=== PATIENT | female | born 1985 | race African-American/Black ===

== ENCOUNTER 2020-09-26 15:18 | Inpatient (IN) | payer BC ==
[~2020-09-26] VITALS: Ht 172.7 cm; Wt 63.5 kg
[2020-09-26] MEDS ORDERED: Omnipaque-300 100ml vial INJ PRN (15:30)
[2020-09-26] MEDS ORDERED: Morphine Sulfate 4mg/ml Inj (IV USE ONLY) IVP ONE ×2 (15:45→17:15)
--- NOTE | 2020-09-26 15:45 | NUR ---
ED Nurse Note:pt. came from home with lower abdominal pain, she had surgical presidure done yesterday, no fever, blood and urine sent to labs, given iv fluids and meds
[2020-09-26 15:53] VITALS: BP 106/67
[2020-09-26 15:54] LABS: APPEARANCE,URINE CLEAR; BILIRUBIN, URINE NEGATIVE (NEGATIVE); COLOR,URINE PALE YELLOW; GLUCOSE, URINE (UA) NEGATIVE (NEGATIVE); KETONES,URINE 4+ (NEGATIVE); LEUKOCYTE ESTERASE ,URINE 1+ (NEGATIVE); NITRITE,URINE NEGATIVE (NEGATIVE); PH,URINE 7 (4.5-8.0); PROTEIN,URINE NEGATIVE (NEGATIVE); UROBILINOGEN,URINE NORMAL MG/DL (0.0-1.0)
[2020-09-26 16:11] LABS: ANION GAP 8 mmol/L (5-15); BLOOD UREA NITROGEN 3 mg/dL (7-18); CALCIUM 8.7 MG/DL (8.5-10.1); CARBON DIOXIDE 26 MMOL/L (21-32); CHLORIDE 104 MMOL/L (98-107); CREATININE 0.5 MG/DL (0.55-1.30); MEAN CORPUSCULAR VOLUME 57 FL (80-99); PLATELET COUNT 370 K/UL (150-450); POTASSIUM 3.8 MMOL/L (3.5-5.1); RED BLOOD COUNT 4.41 M/UL (4.20-5.40); RED CELL DISTRIBUTION WIDTH 15.5 % (11.6-14.8); SODIUM 138 MMOL/L (136-145); WHITE BLOOD COUNT 13.5 K/UL (4.8-10.8)
--- NOTE | 2020-09-26 16:11 | Emergency Room Report ---
History of Present Illness General Chief Complaint: Abdominal Pain Source: Patient, Family Member Present Illness HPI This patient is status post uterine embolization for treatment of uterine fibroids. The patient underwent embolization yesterday around [address] Pizano. The patient states that she has been using Percocet for pain without any relief. The patient states that her pain in her lower pelvis is unbearable. She also feels fatigued. Her mother states she thought she had a fever earlier today. She has very localized pain in the pelvis. She is also had vomiting. She has no other complaints. 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 COVID-19 Screening: Negative COVID-19 COVID-19 Testing Source: 09/24/20 Patient History Past Medical History: see triage record Social History: Denies: smoking, alcohol use, drug use Last Menstrual Period: 1 week ago Now: No Reviewed Nursing Documentation: PMH: Agreed; PSxH: Agreed Nursing Documentation-PMH Past Medical History: No Stated History Review of Systems All Other Systems: negative except mentioned in HPI Physical Exam Vital Signs Date Time Temp Pulse Resp B/P (MAP) Pulse Ox O2 Delivery O2 Flow Rate FiO2 09/26/20 15:23 98.8 93 18 106/67 (80) 98 Room Air Sp02 EP Interpretation: reviewed, normal General Appearance: no apparent distress, alert, GCS 15, non-toxic Head: normocephalic, atraumatic Eyes: bilateral eye normal inspection, bilateral eye PERRL ENT: hearing grossly normal, normal pharynx, no angioedema, normal voice Neck: full range of motion, supple/symm/no masses Respiratory: lungs clear, normal breath sounds, no respiratory distress, no retraction, no accessory muscle use, speaking full sentences Cardiovascular #1: regular rate, rhythm, no edema Gastrointestinal: soft, tenderness - exquistely ttp in pelvis Rectal: deferred Musculoskeletal: back normal, normal range of motion, gait/station normal, non- tender Neurologic: alert, motor strength/tone normal, oriented x3, sensory intact, responsive, speech normal Psychiatric: judgement/insight normal, memory normal, mood/affect normal, no suicidal/homicidal ideation Medical Decision Making Diagnostic Impression: Primary Impression: Status post embolization of uterine artery Additional Impressions: Other acute postprocedural pain Post procedure pain Uncontrolled pain Anemia ER Course This patient is status post embolization of uterine artery for uterine fibroids. The patient presents with severe post procedure pain that is nonresponsive to oral pain medications at home. The patient is also found to have significant anemia. I had planned on doing a type and cross and a transfusion, however, the patient declined stating bahai reasons. I did notify Dr. Pizano. Dr. Pizano stated that she has known iron deficiency anemia and this is her baseline. The patient is admitted for further pain control and further evaluation and treatment by Dr. Pizano. This patient was evaluated in the context of the global COVID-19 pandemic, which necessitated consideration that the patient might be at risk for infection with the [id number] virus that causes COVID-19. Institutional protocols and algorithms that pertain to the evaluation of patients at risk for COVID-19 and the state of rapid change based on information released by multiple regulatory bodies including the CDC and federal and state organizations. These policies and algorithms were followed during the patient's care in the ED. Laboratory Tests Test 09/26/20 15:45 09/26/20 15:48 09/26/20 16:50 White Blood Count 13.5 K/UL (4.8-10.8) H Red Blood Count 4.41 M/UL (4.20-5.40) Hemoglobin 6.4 G/DL (12.0-16.0) *L Hematocrit 25.0 % (37.0-47.0) L Mean Corpuscular Volume 57 FL (80-99) L Mean Corpuscular Hemoglobin 14.6 PG (27.0-31.0) L Mean Corpuscular Hemoglobin Concent 25.9 G/DL (32.0-36.0) L Red Cell Distribution Width 15.5 % (11.6-14.8) H Platelet Count 370 K/UL (150-450) Mean Platelet Volume 7.2 FL (6.5-10.1) Neutrophils (%) (Auto) % (45.0-75.0) Lymphocytes (%) (Auto) % (20.0-45.0) Monocytes (%) (Auto) % (1.0-10.0) Eosinophils (%) (Auto) % (0.0-3.0) Basophils (%) (Auto) % (0.0-2.0) Differential Total Cells Counted 100 Neutrophils % (Manual) 84 % (45-75) H Lymphocytes % (Manual) 7 % (20-45) L Monocytes % (Manual) 7 % (1-10) Eosinophils % (Manual) 0 % (0-3) Basophils % (Manual) 0 % (0-2) Band Neutrophils 2 % (0-8) Platelet Estimate Adequate Platelet Morphology Normal Hypochromasia 3+ Anisocytosis 3+ Microcytosis 3+ Macrocytosis Occasional Urine Color Pale yellow Urine Appearance Clear Urine pH 7 (4.5-8.0) Urine Specific [place] 1.010 (1.005-1.035) Urine Protein Negative (NEGATIVE) Urine Glucose (UA) Negative (NEGATIVE) Urine Ketones 4+ (NEGATIVE) H Urine Blood Negative (NEGATIVE) Urine Nitrite Negative (NEGATIVE) Urine Bilirubin Negative (NEGATIVE) Urine Urobilinogen Normal MG/DL (0.0-1.0) Urine Leukocyte Esterase 1+ (NEGATIVE) H Urine RBC 0-2 /HPF (0 - 2) Urine WBC 5-10 /HPF (0 - 2) H Urine Squamous Epithelial Cells Moderate /LPF (NONE/OCC) H Urine Bacteria Moderate /HPF (NONE) H Urine HCG, Qualitative Negative (NEGATIVE) Sodium Level 138 MMOL/L (136-145) Potassium Level 3.8 MMOL/L (3.5-5.1) Chloride Level 104 MMOL/L (98-107) Carbon Dioxide Level 26 MMOL/L (21-32) Anion Gap 8 mmol/L (5-15) Blood Urea Nitrogen 3 mg/dL (7-18) L Creatinine 0.5 MG/DL (0.55-1.30) L Estimated Glomerular Filtration Rate > 60 mL/min (>60) Glucose Level 92 MG/DL (74-106) Calcium Level 8.7 MG/DL (8.5-10.1) Total Bilirubin 0.6 MG/DL (0.2-1.0) Aspartate Amino Transferase (AST) 36 U/L (15-37) Alanine Aminotransferase (ALT) 10 U/L (12-78) L Alkaline Phosphatase 55 U/L (46-116) Total Protein 7.0 G/DL (6.4-8.2) Albumin 3.6 G/DL (3.4-5.0) Globulin 3.4 g/dL Albumin/Globulin Ratio 1.1 (1.0-2.7) Lipase 77 U/L (73-393) Prothrombin Time 11.5 SEC (9.30-11.50) Prothrombin Time INR 1.0 (0.9-1.1) Activated Partial Thromboplast Time 29 SEC (23-33) Lactic Acid Level Pending Microbiology Date/Time Source Procedure Growth Status 09/26/20 15:45 Nasopharynx SARS-CoV-2 RdRp Gene Assay - Final Complete CT/MRI/US Diagnostic Results CT/MRI/US Diagnostic Results : Imaging Test Ordered: CT abd/pelvis Impression IMPRESSION: 1. Very large uterine fibroids, some containing calcifications, hyperdense material, and gas. 2. Small amount of gas in the anterior bladder may represent recent catheterization or cystitis. Please correlate with urinalysis. 3. Small amount of ascites. Last Vital Signs Date Time Temp Pulse Resp B/P (MAP) Pulse Ox O2 Delivery O2 Flow Rate FiO2 09/26/20 15:23 98.8 93 18 106/67 (80) 98 Room Air Status: improved Disposition: ADMITTED INPATIENT Condition: Stable Scripts No Active Prescriptions or Reported Meds Referrals: NON PHYSICIAN (PCP) Amina Garcia DO Sep 26, 2020 16:10
[2020-09-26 16:15] LABS: ALANINE AMINOTRANSFERASE 10 U/L (12-78); ALBUMIN 3.6 G/DL (3.4-5.0); ALBUMIN/GLOBULIN RATIO 1.1 (1.0-2.7); ALKALINE PHOSPHATASE 55 U/L (46-116); ASPARTATE AMINO TRANSFERASE 36 U/L (15-37); BILIRUBIN,TOTAL 0.6 MG/DL (0.2-1.0)
[2020-09-26 16:19] LABS: HEMOGLOBIN 6.4 G/DL (12.0-16.0)
--- NOTE | 2020-09-26 16:30 | NUR ---
ED Nurse Note:pt. refusing blood transfusion, ER MD is notified and blood bank also
[2020-09-26 17:37] VITALS: BP 110/68
--- NOTE | 2020-09-26 17:47 | Diagnostic Imaging Report ---
EXAM: CT Abdomen and Pelvis Without Intravenous Contrast CLINICAL HISTORY: PAIN TECHNIQUE: Axial computed tomography images of the abdomen and pelvis without intravenous contrast. CTDI is 3.90 mGy and DLP is 217.20 mGy-cm. One or more of the following dose reduction techniques were used: automated exposure control, adjustment of the mA and/or kV according to patient size, use of iterative reconstruction technique. COMPARISON: None FINDINGS: Lung bases: Unremarkable. No mass. No consolidation. ABDOMEN: Liver: Unremarkable. Gallbladder and bile ducts: Hyperdense material within the gallbladder may represent vicarious excretion of contrast versus stones/sludge. No ductal dilation. Pancreas: Unremarkable. No ductal dilation. Spleen: Unremarkable. No splenomegaly. Adrenals: Unremarkable. No mass. Kidneys and ureters: Unremarkable. No obstructing stones. No hydronephrosis. Stomach and bowel: Evaluation of the stomach is limited bladder distention. No mucosal thickening. PELVIS: Appendix: Normal appendix. Bladder: Small amount of gas in the anterior bladder may represent recent catheterization or cystitis. Please correlate with urinalysis. Reproductive: Very large uterine fibroids, some containing calcifications, hyperdense material, and gas. ABDOMEN and PELVIS: Intraperitoneal space: Small amount of ascites. No free air. Bones/joints: No acute fracture. No dislocation. Soft tissues: Bilateral breast implants partially visualized. Probable injection changes in the gluteal soft tissues. Vasculature: Unremarkable. No abdominal aortic aneurysm. Lymph nodes: Unremarkable. No enlarged lymph nodes. IMPRESSION: 1. Very large uterine fibroids, some containing calcifications, hyperdense material, and gas. 2. Small amount of gas in the anterior bladder may represent recent catheterization or cystitis. Please correlate with urinalysis. 3. Small amount of ascites.
--- NOTE | 2020-09-26 18:00 | NUR ---
ED Nurse Note:called report to [address] ,given to Eduardo FREEMAN
--- NOTE | 2020-09-26 18:05 | NUR ---
NURSE NOTES: Received patient by gayla in stable condition. Alert and oriented x4. Complain of pain 7/10 on abdominal area. IV dressing intact and dry. Belonging checked. Bed lowest position and side rails up. Call light within reach. Will continue to monitor.
[2020-09-26 18:15] VITALS: BP 115/70
[2020-09-26] MEDS ORDERED: Milk of Magnesia 30ml Ud ORAL PRN (18:30)
[2020-09-26] MEDS ORDERED: HYDROmorphone 1mg/ml Carpuject IVP PRN (18:45)
--- NOTE | 2020-09-26 19:20 | NUR ---
NURSE HAND-OFF: Important Events on Shift:New admission Patient Status: Stable Diet: Full liquid Pending Orders: N/A Pending Results/Labs:CBC and CMP on 09/27 Pending MD notification:N/A Latest Vital Signs: Temperature 97.6 , Pulse 98 , B/P 115 /70 , Respiratory Rate 16 , O2 SAT 98 , Room Air, O2 Flow Rate . Vital Sign Comment: Stable Latest Pacheco Fall Score: 35 Fall Risk: Medium Risk Safety Measures: Call light Within Reach, Bed Alarm Zone 1, Side Rails Side Rails x2, Bed position Low and Locked. Fall Precautions: Yellow Socks Door Sign Patient Fall Education Report given to Jorge FREEMAN. Patient in stable condition.
--- NOTE | 2020-09-26 19:45 | NUR ---
NURSE NOTES: Received report from Joe FREEMAN. Patient is awake, alert, and oriented x4. On room air, breathing is even and unlabored. Complains of abdominal pain 9/10. Will administer pain med. Heating pad in the room. IV right AC intact and patent with no bleeding noted. IVF running as ordered. Bed low and locked. Call light within reach.
[2020-09-26 20:00] VITALS: BP 110/68
[2020-09-26] MEDS: Potassium Chloride 30 MEQ in Dextrose 5%/Lactated Ringer's 1,000 ML IV SCH (21:04)
[2020-09-26] MEDS: Iron Sucrose 100 MG in NS 55 ML IVPB SCH (21:04)
[2020-09-26] MEDS: ceFAZolin sod 1 GM in D5W 55 ML IVPB SCH (21:25)
[2020-09-26] MEDS: Relistor 12mg/0.6ml Vial SUBQ SCH (21:25)
[2020-09-27] VITALS: BP 112/69
[2020-09-27] MEDS: Potassium Chloride 30 MEQ in Dextrose 5%/Lactated Ringer's 1,000 ML IV SCH ×4 (03:18→22:39)
[2020-09-27 04:00] VITALS: BP 114/70
--- NOTE | 2020-09-27 04:00 | NUR ---
NURSE NOTES: Patient's O2 sat drop down to 80s. Patient is asleep, easily arousable, and asymptomatic. Put the NC 2L, and O2 sat went up to 92. Called about the situation. Order received and carried out. NC 5-6L titrate >93.
[2020-09-27] MEDS: ceFAZolin sod 1 GM in D5W 55 ML IVPB SCH ×3 (05:14→22:39)
[2020-09-27 06:20] LABS: HEMATOCRIT 21.4 % (37.0-47.0); MEAN CORPUSCULAR VOLUME 57 FL (80-99); PLATELET COUNT 333 K/UL (150-450); RED BLOOD COUNT 3.77 M/UL (4.20-5.40); RED CELL DISTRIBUTION WIDTH 15.8 % (11.6-14.8); WHITE BLOOD COUNT 15.5 K/UL (4.8-10.8)
[2020-09-27 06:33] LABS: HEMOGLOBIN 5.7 G/DL (12.0-16.0)
--- NOTE | 2020-09-27 06:52 | NUR ---
NURSE NOTES: Received phone call from Nilson from lab regarding Hgb 5.7. Called Dr.Mc Mack about the critical value. Order received and read back. Will carry out order.
[2020-09-27 07:06] LABS: ALANINE AMINOTRANSFERASE 9 U/L (12-78); ALBUMIN 2.9 G/DL (3.4-5.0); ALBUMIN/GLOBULIN RATIO 0.9 (1.0-2.7); ALKALINE PHOSPHATASE 47 U/L (46-116); ANION GAP 6 mmol/L (5-15); ASPARTATE AMINO TRANSFERASE 27 U/L (15-37); BILIRUBIN,TOTAL 0.4 MG/DL (0.2-1.0); BLOOD UREA NITROGEN 3 mg/dL (7-18); CARBON DIOXIDE 28 MMOL/L (21-32); CHLORIDE 105 MMOL/L (98-107); CREATININE 0.4 MG/DL (0.55-1.30); POTASSIUM 3.4 MMOL/L (3.5-5.1); SODIUM 139 MMOL/L (136-145)
[2020-09-27 07:29] LABS: CALCIUM 8.4 MG/DL (8.5-10.1)
--- NOTE | 2020-09-27 07:38 | NUR ---
NURSE HAND-OFF: Important Events on Shift: Pain management, NC 5-6L titrate >93 Patient Status: Stable Diet: Full liquid Pending Orders: [] Pending Results/Labs:[] Pending MD notification:[] Latest Vital Signs: Temperature 99.0 , Pulse 91 , B/P 114 /70 , Respiratory Rate 16 , O2 SAT 98 , Room Air, O2 Flow Rate . Vital Sign Comment: VS stable except O2 sat Latest Pacheco Fall Score: 35 Fall Risk: Medium Risk Safety Measures: Call light Within Reach, Bed Alarm Zone 1, Side Rails Side Rails x2, Bed position Low and Locked. Fall Precautions: Patient Fall Education Report given to Joshua FREEMAN.
--- NOTE | 2020-09-27 07:40 | NUR ---
NURSE NOTES: Received report from LYDIA Patel. Rounding done with outgoing nurse. Pt a/o x 4, in bed. No SOB noted with NC 2L/min. c/o abdominal pain as 06/16. Pain medicine will be given as MD ordered. Rt AC is in placed. D5LR + KCl 30meq is running @ 150ml/hr. Bed in lowest position, call light within reach. Will continue to monitor.
[2020-09-27 07:58] VITALS: BP 102/65
--- NOTE | 2020-09-27 08:22 | History & Physical ---
History of Present Illness General Date patient seen: Sep 27, 2020 Reason for Hospitalization: Abdominal Pain Present Illness HPI 35 F h/o UF and anemia SP UFE 09/25 p/w abd pain and anemia. No FC no CP some SOB no NV + D. She refused PRBC in the ER. She has been admitted for pain control, anemia and bowel regimen. Allergies: Coded Allergies: ACETAMINOPHEN (Verified Allergy, Unknown, 09/26/20) OXYCODONE (Verified Allergy, Unknown, 09/26/20) COVID-19 Screening Contact w/high risk pt: No Recent Travel to affected area: No Experienced COVID-19 symptoms?: No Medication History No Active Prescriptions or Reported Meds Patient History History Provided By: Patient Healthcare decision maker N Resuscitation status Advanced Directive on File Review of Systems Review of Symptoms General ROS: no weight loss or fever Psychological ROS: no depression or mood changes, no memory loss Ophthalmic ROS: no visual changes or eye irritation ENT ROS: no nasal congestion, hearing loss, dizziness Allergy and Immunology ROS: no allergic symptoms or urticaria Hematological and Lymphatic ROS: no swollen glands, unusual bleeding or bruising Endocrine ROS: no polyuria, polydipsia, weight changes, temperature intolerance Respiratory ROS: no cough, shortness of breath, or wheezing Cardiovascular ROS: no chest pain or dyspnea on exertion Gastrointestinal ROS: denies abdominal pain, bright red blood in stool. Musculoskeletal ROS: no myalgias or arthralgias Neurological ROS: no TIA or stroke symptoms Dermatological ROS: no new or changing skin lesions, rashes or pruritis Physical Exam Physical Exam General appearance: alert, cooperative, no distress, appears stated age Head: Normocephalic, without obvious abnormality, atraumatic Eyes: conjunctivae/corneas clear. PERRL, EOM's intact. Fundi benign Throat: Lips, mucosa, and tongue normal. Teeth and gums normal Neck: supple, symmetrical, trachea midline, no adenopathy, thyroid: not enlarged, symmetric, no tenderness/mass/nodules, no carotid bruit and no JVD Lungs: clear to auscultation bilaterally Heart: regular rate and rhythm, S1, S2 normal, no murmur, click, rub or gallop Abdomen: soft, non-tender. Bowel sounds normal. No masses, no organomegaly Extremities: extremities normal, atraumatic, no cyanosis or edema Pulses: 2+ and symmetric Skin: Skin color, texture, turgor normal. No rashes or lesions Neurologic: Grossly normal Last 24 Hour Vital Signs Date Time Temp Pulse Resp B/P (MAP) Pulse Ox O2 Delivery O2 Flow Rate FiO2 09/27/20 07:58 99.5 95 16 102/65 (77) 98 09/27/20 04:00 99.0 91 16 114/70 (85) 98 09/27/20 00:00 99.2 97 16 112/69 (83) 95 09/26/20 21:00 Room Air 09/26/20 20:00 98.8 104 16 110/68 (82) 98 09/26/20 18:32 Room Air 09/26/20 18:15 97.6 98 16 115/70 (85) 98 09/26/20 17:37 98.8 82 18 110/68 99 Room Air 09/26/20 17:36 98.8 09/26/20 17:35 98.8 92 18 106/67 98 Room Air 09/26/20 16:38 98.8 09/26/20 15:53 93 18 Room Air 09/26/20 15:53 98.8 92 18 106/67 98 Room Air 09/26/20 15:23 98.8 93 18 106/67 (80) 98 Room Air Intake and Output 09/26/20 09/27/20 19:00 07:00 Intake Total 1360 ml Balance 1360 ml Intake Oral 140 ml IV Total 1220 ml # Voids 1 3 Laboratory Tests Test 09/26/20 15:45 09/26/20 15:48 09/26/20 16:50 09/27/20 04:55 White Blood Count 13.5 K/UL (4.8-10.8) H 15.5 K/UL (4.8-10.8) H Red Blood Count 4.41 M/UL (4.20-5.40) 3.77 M/UL (4.20-5.40) L Hemoglobin 6.4 G/DL (12.0-16.0) *L 5.7 G/DL (12.0-16.0) *L Hematocrit 25.0 % (37.0-47.0) L 21.4 % (37.0-47.0) L Mean Corpuscular Volume 57 FL (80-99) L 57 FL (80-99) L Mean Corpuscular Hemoglobin 14.6 PG (27.0-31.0) L 15.2 PG (27.0-31.0) L Mean Corpuscular Hemoglobin Concent 25.9 G/DL (32.0-36.0) L 26.7 G/DL (32.0-36.0) L Red Cell Distribution Width 15.5 % (11.6-14.8) H 15.8 % (11.6-14.8) H Platelet Count 370 K/UL (150-450) 333 K/UL (150-450) Mean Platelet Volume 7.2 FL (6.5-10.1) 8.4 FL (6.5-10.1) Neutrophils (%) (Auto) % (45.0-75.0) % (45.0-75.0) Lymphocytes (%) (Auto) % (20.0-45.0) % (20.0-45.0) Monocytes (%) (Auto) % (1.0-10.0) % (1.0-10.0) Eosinophils (%) (Auto) % (0.0-3.0) % (0.0-3.0) Basophils (%) (Auto) % (0.0-2.0) % (0.0-2.0) Differential Total Cells Counted 100 Neutrophils % (Manual) 84 % (45-75) H Pending Lymphocytes % (Manual) 7 % (20-45) L Pending Monocytes % (Manual) 7 % (1-10) Eosinophils % (Manual) 0 % (0-3) Basophils % (Manual) 0 % (0-2) Band Neutrophils 2 % (0-8) Platelet Estimate Adequate Pending Platelet Morphology Normal Pending Hypochromasia 3+ Anisocytosis 3+ Microcytosis 3+ Macrocytosis Occasional Urine Color Pale yellow Urine Appearance Clear Urine pH 7 (4.5-8.0) Urine Specific [place] 1.010 (1.005-1.035) Urine Protein Negative (NEGATIVE) Urine Glucose (UA) Negative (NEGATIVE) Urine Ketones 4+ (NEGATIVE) H Urine Blood Negative (NEGATIVE) Urine Nitrite Negative (NEGATIVE) Urine Bilirubin Negative (NEGATIVE) Urine Urobilinogen Normal MG/DL (0.0-1.0) Urine Leukocyte Esterase 1+ (NEGATIVE) H Urine RBC 0-2 /HPF (0 - 2) Urine WBC 5-10 /HPF (0 - 2) H Urine Squamous Epithelial Cells Moderate /LPF (NONE/OCC) H Urine Bacteria Moderate /HPF (NONE) H Urine HCG, Qualitative Negative (NEGATIVE) Sodium Level 138 MMOL/L (136-145) 139 MMOL/L (136-145) Potassium Level 3.8 MMOL/L (3.5-5.1) 3.4 MMOL/L (3.5-5.1) L Chloride Level 104 MMOL/L (98-107) 105 MMOL/L (98-107) Carbon Dioxide Level 26 MMOL/L (21-32) 28 MMOL/L (21-32) Anion Gap 8 mmol/L (5-15) 6 mmol/L (5-15) Blood Urea Nitrogen 3 mg/dL (7-18) L 3 mg/dL (7-18) L Creatinine 0.5 MG/DL (0.55-1.30) L 0.4 MG/DL (0.55-1.30) L Estimat Glomerular Filtration Rate > 60 mL/min (>60) > 60 mL/min (>60) Glucose Level 92 MG/DL (74-106) 140 MG/DL (74-106) H Calcium Level 8.7 MG/DL (8.5-10.1) 8.4 MG/DL (8.5-10.1) L Total Bilirubin 0.6 MG/DL (0.2-1.0) 0.4 MG/DL (0.2-1.0) Aspartate Amino Transf (AST/SGOT) 36 U/L (15-37) 27 U/L (15-37) Alanine Aminotransferase (ALT/SGPT) 10 U/L (12-78) L 9 U/L (12-78) L Alkaline Phosphatase 55 U/L (46-116) 47 U/L (46-116) Total Protein 7.0 G/DL (6.4-8.2) 6.0 G/DL (6.4-8.2) L Albumin 3.6 G/DL (3.4-5.0) 2.9 G/DL (3.4-5.0) L Globulin 3.4 g/dL 3.1 g/dL Albumin/Globulin Ratio 1.1 (1.0-2.7) 0.9 (1.0-2.7) L Lipase 77 U/L (73-393) Prothrombin Time 11.5 SEC (9.30-11.50) Prothromb Time International Ratio 1.0 (0.9-1.1) Activated Partial Thromboplast Time 29 SEC (23-33) Lactic Acid Level 1.00 mmol/L (0.4-2.0) Microbiology Date/Time Source Procedure Growth Status 09/26/20 15:45 Nasopharynx SARS-CoV-2 RdRp Gene Assay - Final Complete Height (Feet): 5 Height (Inches): 8.00 Weight (Pounds): 140 Medications Current Medications Medications (Trade) Dose Ordered Sig/Josias Route PRN Reason Start Time Stop Time Status Last Admin Dose Admin Cefazolin Sodium 1 gm/Dextrose 55 ml @ 110 mls/hr Q8HR IVPB 09/26/20 22:00 10/03/20 21:59 09/27/20 05:14 Hydromorphone HCl (Dilaudid) 1 mg Q3H PRN IVP Mild Pain (Pain Scale 1-3) 09/26/20 18:45 10/03/20 18:44 Hydromorphone HCl (Dilaudid) 2 mg Q3H PRN IVP Moderate Pain (Pain Scale 4-6) 09/26/20 18:45 10/03/20 18:44 Hydromorphone HCl (Dilaudid) 2 mg Q3H PRN IVP Severe Pain (Pain Scale 7-10) 09/27/20 07:00 10/04/20 06:59 09/27/20 08:04 Iohexol (OMNIPAQUE-300 100ml) 100 ml NOW PRN INJ Radiology Procedure 09/26/20 15:30 09/28/20 15:29 Iron Sucrose 100 mg/Sodium Chloride 60 ml @ 240 mls/hr BEDTIME IVPB 09/26/20 21:00 10/26/20 20:59 09/26/20 21:04 Magnesium Hydroxide (Mom) 30 ml TIDPRN PRN ORAL Constipation 09/26/20 18:30 10/26/20 18:29 Methylnaltrexone [place] (Relistor) 12 mg Q48H SUBQ 09/26/20 21:00 12/25/20 20:59 09/26/20 21:25 Ondansetron HCl (Zofran) 4 mg Q6H PRN IVP Nausea & Vomiting 09/26/20 18:30 10/26/20 18:29 Potassium Chloride 30 meq/ Dextrose/Lactated Ringer's 1,015 ml @ 150 mls/hr Q6H46M IV 09/26/20 20:00 10/26/20 19:59 09/27/20 03:18 Assessment/Plan Problem List: (1) Other acute postprocedural pain ICD Codes: G89.18 - Other acute postprocedural pain SNOMED: 596450487392225 (2) Anemia ICD Codes: D64.9 - Anemia, unspecified SNOMED: 069429004 (3) Status post embolization of uterine artery ICD Codes: Z98.890 - Other specified postprocedural states SNOMED: 575753979 Assessment/Plan: Admit to OBS Pain control/supportive care Bowel regimen Encourage PRBC, pt declines, will continue to discuss Theresa-operative Keflex OOB IS DIETITIAN THERAPEUTIC consult Diet as tolerated mIVF DVT Px: S[facility] Hospital declaration INPATIENT level of care is warranted for this patient because patient is a 89 year old with who presents with suspicion of . I have a high level of concern because . Patient is at high risk for . Plan of care/treatment include . Patient care is expected to be greater than 2 midnights. OBSERVATION level of care is warranted for this patient. Patient is a 89 year old with who presents with . Patient will be admitted for 1 midnight, but if additional night(s) is/are necessary, patient will be converted to inpatient status for the entire hospitalization Disposition: Once the patient is stable to leave the hospital, I anticipate the patient will likely be discharged to the following environment: Estimated discharge date: I spent 70 minutes on this patient's case, and minutes was dedicated to counseling and/or care coordination. MIPS (Merit-based Incentive Payment System) Applicable CPT: 40464, 11890 CHECK ALL THAT ARE MET: Measure #5 (CHF): All ages. Prescribe PATY/ARB upon discharge for patients with left ventricular systolic dysfunction. If not, the reason is clearly documented in the medical chart. Measure #8 (CHF): All ages. Prescribe a beta geovanni upon discharge for patients with left ventricular systolic dysfunction. If not, the reason is clearly documented in the medical chart. Measure #47 Advance care plan or surrogate decision maker documented in the medical record. Measure #130 The provider has documented, updated, or reviewed the patients current medication list and has documented it in the patients note. Measure #374 (All): Send report to referring provider. Measure #407(Sepsis due to MSSA bacteremia): Age 18+ Patient treated with a beta-lactam antibiotic (Nafcillin, Oxacillin or Cefazolin) as definitive therapy. MEDICAL COMPLEXITY High complexity medical decision making (need 2/3 categories) Problem - need 4 points Acute/new problem with new plan for workup (4 points, 1 max) Acute/new problem without additional workup (3 points, 1 max) Unstable chronic problem actively being managed (2 point each, 2 max) Stable chronic problem actively being managed (1 point each, 2 max) Self-limited/transient process (constipation, muscle ache, etc) (1 point each, 2 max) Data - need 4 points Reviewed labs/imaging studies (1 points, 2 max) Independent review of imaging (EKG, xrays, etc) (2 points, 2 max) Discussed case with consult/other MD/RN (2 points, 2 max) High Risk - qualify if have one of the following: Severe exacerbation of acute problem, acute mental status change, IV narcotics, monitoring drug levels (vancomycin, INR, tacrolimus etc) Andrew Duarte MD Sep 27, 2020 08:22
--- NOTE | 2020-09-27 10:50 | NUR ---
NURSE NOTES: Blood transfusion was started. Pt is in stable condition.
--- NOTE | 2020-09-27 11:25 | NUR ---
NURSE NOTES: Dr. Pizano called and ordered soft diet. Order read back and carried out.
--- NOTE | 2020-09-27 11:31 | General Surgery Progress Note ---
General Surgery-Progress Note Subjective Day of Surgery: september 25 Procedure Performed uterine fibroid embolization Chief Complaint: uncontrolled post procedure pain, anemia Symptoms: tolerating diet, voiding well, pain decreased Objective Last 24 Hour Vital Signs Date Time Temp Pulse Resp B/P (MAP) Pulse Ox O2 Delivery O2 Flow Rate FiO2 09/27/20 07:58 99.5 95 16 102/65 (77) 98 09/27/20 04:00 99.0 91 16 114/70 (85) 98 09/27/20 00:00 99.2 97 16 112/69 (83) 95 09/26/20 21:00 Room Air 09/26/20 20:00 98.8 104 16 110/68 (82) 98 09/26/20 18:32 Room Air 09/26/20 18:15 97.6 98 16 115/70 (85) 98 09/26/20 17:37 98.8 82 18 110/68 99 Room Air 09/26/20 17:36 98.8 09/26/20 17:35 98.8 92 18 106/67 98 Room Air 09/26/20 16:38 98.8 09/26/20 15:53 93 18 Room Air 09/26/20 15:53 98.8 92 18 106/67 98 Room Air 09/26/20 15:23 98.8 93 18 106/67 (80) 98 Room Air I&O Intake and Output 09/26/20 09/27/20 19:00 07:00 Intake Total 1360 ml Balance 1360 ml Intake Oral 140 ml IV Total 1220 ml # Voids 1 3 Dressing: dry Wound: clean Drains: none Cardiovascular: RSR Respiratory: clear Abdomen: soft, flat, scaphoid, tenderness, decreased bowel sounds Extremities: no edema, no tenderness, no cyanosis Laboratory Tests Test 09/26/20 15:45 09/26/20 15:48 09/26/20 16:50 09/27/20 04:55 White Blood Count 13.5 K/UL (4.8-10.8) H 15.5 K/UL (4.8-10.8) H Red Blood Count 4.41 M/UL (4.20-5.40) 3.77 M/UL (4.20-5.40) L Hemoglobin 6.4 G/DL (12.0-16.0) *L 5.7 G/DL (12.0-16.0) *L Hematocrit 25.0 % (37.0-47.0) L 21.4 % (37.0-47.0) L Mean Corpuscular Volume 57 FL (80-99) L 57 FL (80-99) L Mean Corpuscular Hemoglobin 14.6 PG (27.0-31.0) L 15.2 PG (27.0-31.0) L Mean Corpuscular Hemoglobin Concent 25.9 G/DL (32.0-36.0) L 26.7 G/DL (32.0-36.0) L Red Cell Distribution Width 15.5 % (11.6-14.8) H 15.8 % (11.6-14.8) H Platelet Count 370 K/UL (150-450) 333 K/UL (150-450) Mean Platelet Volume 7.2 FL (6.5-10.1) 8.4 FL (6.5-10.1) Neutrophils (%) (Auto) % (45.0-75.0) % (45.0-75.0) Lymphocytes (%) (Auto) % (20.0-45.0) % (20.0-45.0) Monocytes (%) (Auto) % (1.0-10.0) % (1.0-10.0) Eosinophils (%) (Auto) % (0.0-3.0) % (0.0-3.0) Basophils (%) (Auto) % (0.0-2.0) % (0.0-2.0) Differential Total Cells Counted 100 100 Neutrophils % (Manual) 84 % (45-75) H 79 % (45-75) H Lymphocytes % (Manual) 7 % (20-45) L 10 % (20-45) L Monocytes % (Manual) 7 % (1-10) 11 % (1-10) H Eosinophils % (Manual) 0 % (0-3) 0 % (0-3) Basophils % (Manual) 0 % (0-2) 0 % (0-2) Band Neutrophils 2 % (0-8) 0 % (0-8) Platelet Estimate Adequate Adequate Platelet Morphology Normal Normal Hypochromasia 3+ 3+ Anisocytosis 3+ 1+ Microcytosis 3+ 1+ Macrocytosis Occasional Urine Color Pale yellow Urine Appearance Clear Urine pH 7 (4.5-8.0) Urine Specific [place] 1.010 (1.005-1.035) Urine Protein Negative (NEGATIVE) Urine Glucose (UA) Negative (NEGATIVE) Urine Ketones 4+ (NEGATIVE) H Urine Blood Negative (NEGATIVE) Urine Nitrite Negative (NEGATIVE) Urine Bilirubin Negative (NEGATIVE) Urine Urobilinogen Normal MG/DL (0.0-1.0) Urine Leukocyte Esterase 1+ (NEGATIVE) H Urine RBC 0-2 /HPF (0 - 2) Urine WBC 5-10 /HPF (0 - 2) H Urine Squamous Epithelial Cells Moderate /LPF (NONE/OCC) H Urine Bacteria Moderate /HPF (NONE) H Urine HCG, Qualitative Negative (NEGATIVE) Sodium Level 138 MMOL/L (136-145) 139 MMOL/L (136-145) Potassium Level 3.8 MMOL/L (3.5-5.1) 3.4 MMOL/L (3.5-5.1) L Chloride Level 104 MMOL/L (98-107) 105 MMOL/L (98-107) Carbon Dioxide Level 26 MMOL/L (21-32) 28 MMOL/L (21-32) Anion Gap 8 mmol/L (5-15) 6 mmol/L (5-15) Blood Urea Nitrogen 3 mg/dL (7-18) L 3 mg/dL (7-18) L Creatinine 0.5 MG/DL (0.55-1.30) L 0.4 MG/DL (0.55-1.30) L Estimat Glomerular Filtration Rate > 60 mL/min (>60) > 60 mL/min (>60) Glucose Level 92 MG/DL (74-106) 140 MG/DL (74-106) H Calcium Level 8.7 MG/DL (8.5-10.1) 8.4 MG/DL (8.5-10.1) L Total Bilirubin 0.6 MG/DL (0.2-1.0) 0.4 MG/DL (0.2-1.0) Aspartate Amino Transf (AST/SGOT) 36 U/L (15-37) 27 U/L (15-37) Alanine Aminotransferase (ALT/SGPT) 10 U/L (12-78) L 9 U/L (12-78) L Alkaline Phosphatase 55 U/L (46-116) 47 U/L (46-116) Total Protein 7.0 G/DL (6.4-8.2) 6.0 G/DL (6.4-8.2) L Albumin 3.6 G/DL (3.4-5.0) 2.9 G/DL (3.4-5.0) L Globulin 3.4 g/dL 3.1 g/dL Albumin/Globulin Ratio 1.1 (1.0-2.7) 0.9 (1.0-2.7) L Lipase 77 U/L (73-393) Prothrombin Time 11.5 SEC (9.30-11.50) Prothromb Time International Ratio 1.0 (0.9-1.1) Activated Partial Thromboplast Time 29 SEC (23-33) Lactic Acid Level 1.00 mmol/L (0.4-2.0) Imaging negative doppler legs for DVT, CT no abscess, bowel saleh normal. Additional Comments transfusing 2 units PRBC, will evaluate cbc 1 hour post second unit. Plan Additional Comments laxatives, transfusion, assisted ambulation. Raleigh Pizano MD Sep 27, 2020 11:31
[2020-09-27 12:00] VITALS: BP 108/73
--- NOTE | 2020-09-27 12:31 | NUR ---
CASE MANAGEMENT:INITIAL REVIE 35 YR OLD FEMALE FROM HOME CC;ABDOMINAL PAIN SI;POST EMBOLIZATION PAIN. ANEMIA. S/P UTERINE EMBOLIZATION 99.2 104 18 115/70 98% ON RA WBC+ 13.5 H/H- 6.4/25.0 UA+ KETONES, UROBILINOGEN, WBC, SQUAMOUS EPITH CELLS, BACTERIA COVID RAPID ~ NEGATIVE ABD/PELVIS XRAY ~ 1. Very large uterine fibroids, some containing calcifications, hyperdense material, and gas. 2. Small amount of gas in the anterior bladder may represent recent catheterization or cystitis. Please correlate with urinalysis. 3. Small amount of ascites. IS;IVF NS BOLUS MORPHINE IV ZOFRAN IV ADMITTED TO MED SURG MED SURG STATUS DCP;PENDING HOSPITAL STAY
[2020-09-27 16:00] VITALS: BP 118/80
--- NOTE | 2020-09-27 16:00 | NUR ---
NURSE NOTES: 2 units of PRBC was done. Pt is in stable condition. Pt stat she feels better and denies any pain at this time. Will continue to monitor.
[2020-09-27 18:28] LABS: HEMATOCRIT 28.6 % (37.0-47.0); HEMOGLOBIN 8.2 G/DL (12.0-16.0); MEAN CORPUSCULAR VOLUME 62 FL (80-99); PLATELET COUNT 326 K/UL (150-450); RED BLOOD COUNT 4.64 M/UL (4.20-5.40); RED CELL DISTRIBUTION WIDTH 22.8 % (11.6-14.8); WHITE BLOOD COUNT 21.2 K/UL (4.8-10.8)
--- NOTE | 2020-09-27 18:40 | NUR ---
NURSE NOTES: Called Dr. Pizano and informed that Hgb is 8.[address] Pizano ordered [place] 10/325 mg Q3 for severe pain. Order read back and carried out.
[2020-09-27] MEDS ORDERED: HYDROcodone/Acetamin 10/325 tab ORAL PRN (18:45)
--- NOTE | 2020-09-27 19:00 | NUR ---
NURSE HAND-OFF: Important Events on Shift: PRBC x 2 Patient Status: stable Diet: soft diet Pending Orders: Chest x-ray Pending Results/Labs:n/a Pending MD notification:n/a Latest Vital Signs: Temperature 99.5 , Pulse 90 , B/P 118 /80 , Respiratory Rate 16 , O2 SAT 98 , Room Air, O2 Flow Rate . Vital Sign Comment: stable Latest Pacheco Fall Score: 35 Fall Risk: Medium Risk Safety Measures: Call light Within Reach, Bed Alarm Zone 1, Side Rails Side Rails x2, Bed position Low and Locked. Fall Precautions: Patient Fall Education Report given to LYDIA Patel.
--- NOTE | 2020-09-27 19:20 | NUR ---
NURSE NOTES: Patient ambulated hallway x 1 with RN assistance in stable condition.
--- NOTE | 2020-09-27 19:45 | NUR ---
NURSE NOTES: Received report from Joshua FREEMAN. Patient is awake, alert, and oriented x4. On room air, breathing is even and unlabored. Complains of abdominal pain 10/10. Will administer pain med as ordered. IV right AC intact and patent with no bleeding noted. IVF running as ordered. Bed low and locked. Call light within reach.
[2020-09-27 20:00] VITALS: BP 124/80
[2020-09-27] MEDS: Iron Sucrose 100 MG in NS 55 ML IVPB SCH (20:03)
[2020-09-28] VITALS: BP 105/66
[2020-09-28] MEDS: oxyCODONE 5mg IR tab ORAL PRN ×4 (01:14→13:43)
[2020-09-28 04:00] VITALS: BP 103/69
[2020-09-28] MEDS: Potassium Chloride 30 MEQ in Dextrose 5%/Lactated Ringer's 1,000 ML IV SCH (05:29)
[2020-09-28] MEDS: ceFAZolin sod 1 GM in D5W 55 ML IVPB SCH ×3 (05:29→22:33)
[2020-09-28 07:08] LABS: HEMATOCRIT 28.8 % (37.0-47.0); HEMOGLOBIN 8.3 G/DL (12.0-16.0); MEAN CORPUSCULAR VOLUME 62 FL (80-99); PLATELET COUNT 296 K/UL (150-450); RED BLOOD COUNT 4.69 M/UL (4.20-5.40); RED CELL DISTRIBUTION WIDTH 22.7 % (11.6-14.8)
[2020-09-28 07:19] LABS: WHITE BLOOD COUNT 22.1 K/UL (4.8-10.8)
--- NOTE | 2020-09-28 07:30 | NUR ---
NURSE HAND-OFF: Important Events on Shift: Pain management, IV therapy Patient Status: Stable Diet: Soft (vegan) Pending Orders: [] Pending Results/Labs:[] Pending MD notification:[] Latest Vital Signs: Temperature 98.1 , Pulse 98 , B/P 103 /69 , Respiratory Rate 16 , O2 SAT 98 , Room Air, O2 Flow Rate . Vital Sign Comment: VS stable Latest Pacheco Fall Score: 35 Fall Risk: Medium Risk Safety Measures: Call light Within Reach, Bed Alarm Zone 1, Side Rails Side Rails x2, Bed position Low and Locked. Fall Precautions: Patient Fall Education Report given to Flaco FREEMAN.
[2020-09-28 08:00] VITALS: BP 110/71
--- NOTE | 2020-09-28 08:00 | NUR ---
NURSE NOTES: Pt lying in bed w/bed in lowest position and call light within reach. Pt A&Ox4, VSS, and in no apparent distress. IV site intact/asymptomatic w/IVF infusing and skin intact. Pt c/o 03/16 pain but PO pain med not yet due; pt willing to wait and would not like IVP pain med. WBCs 22.1; will notify MD and continue to monitor.
[2020-09-28 08:21] LABS: ALANINE AMINOTRANSFERASE 9 U/L (12-78); ALBUMIN/GLOBULIN RATIO 0.8 (1.0-2.7); ALKALINE PHOSPHATASE 63 U/L (46-116); ANION GAP 9 mmol/L (5-15); ASPARTATE AMINO TRANSFERASE 35 U/L (15-37); BILIRUBIN,TOTAL 1.1 MG/DL (0.2-1.0); BLOOD UREA NITROGEN 1 mg/dL (7-18); CARBON DIOXIDE 26 MMOL/L (21-32); CHLORIDE 104 MMOL/L (98-107); CREATININE 0.5 MG/DL (0.55-1.30); POTASSIUM 3.9 MMOL/L (3.5-5.1); SODIUM 139 MMOL/L (136-145)
--- NOTE | 2020-09-28 08:42 | Pulmonology Progress Note ---
Subjective Allergies: Coded Allergies: ACETAMINOPHEN (Verified Allergy, Unknown, 09/26/20) OXYCODONE (Verified Allergy, Unknown, 09/26/20) Subjective Tm 99 VSS Hb inc post PRBC WCt inc + pain no NV no BM + flatus Objective Last 24 Hour Vital Signs Date Time Temp Pulse Resp B/P (MAP) Pulse Ox O2 Delivery O2 Flow Rate FiO2 09/28/20 08:00 97.8 92 20 110/71 (84) 98 09/28/20 04:00 98.1 98 16 103/69 (80) 98 09/28/20 00:00 98.6 95 16 105/66 (79) 96 09/27/20 21:00 Room Air 09/27/20 20:00 99.8 103 16 124/80 (95) 97 09/27/20 16:00 99.5 90 16 118/80 (93) 98 09/27/20 12:00 99.0 93 16 108/73 (85) 96 09/27/20 09:00 Room Air Intake and Output 09/27/20 09/28/20 19:00 07:00 Intake Total 760 ml 300 ml Balance 760 ml 300 ml Intake Oral 150 ml 300 ml IV Total 110 ml Blood Product 500 ml # Voids 5 3 General Appearance: WD/WN, no acute distress HEENT: normocephalic, atraumatic, anicteric, mucous membranes moist Respiratory: chest wall non-tender, lungs clear, normal breath sounds, no respiratory distress, no accessory muscle use Cardiovascular: normal peripheral pulses, normal rate, regular rhythm Abdomen: hypoactive bowel sounds, tender - diffuse Lower abd Extremities: no cyanosis, no clubbing, no edema Microbiology Date/Time Source Procedure Growth Status 09/26/20 15:45 Urine,Clean Catch Urine Culture - Preliminary NO GROWTH AFTER 24 HOURS Resulted 09/26/20 15:45 Nasopharynx SARS-CoV-2 RdRp Gene Assay - Final Complete Laboratory Tests 09/27/20 18:15: White Blood Count 21.2H, Red Blood Count 4.64, Hemoglobin 8.2#L, Hematocrit 28.6#L, Mean Corpuscular Volume 62#L, Mean Corpuscular Hemoglobin 17.6L, Mean Corpuscular Hemoglobin Concent 28.6L, Red Cell Distribution Width 22.8H, Platelet Count 326, Mean Platelet Volume 7.7, Neutrophils (%) (Auto) , Lymphocytes (%) (Auto) , Monocytes (%) (Auto) , Eosinophils (%) (Auto) , Basophils (%) (Auto) , Differential Total Cells Counted 100, Neutrophils % (Manual) 86H, Lymphocytes % (Manual) 6L, Monocytes % (Manual) 8, Eosinophils % (Manual) 0, Basophils % (Manual) 0, Band Neutrophils 0, Nucleated Red Blood Cells 2, Platelet Estimate Adequate, Platelet Morphology Normal, Polychromasia 2+, Hypochromasia 2+, Anisocytosis 3+, Microcytosis 3+ 09/28/20 05:10: White Blood Count 22.1*H, Red Blood Count 4.69, Hemoglobin 8.3L, Hematocrit 28.8L, Mean Corpuscular Volume 62L, Mean Corpuscular Hemoglobin 17.7L, Mean Corpuscular Hemoglobin Concent 28.8L, Red Cell Distribution Width 22.7H, Platelet Count 296, Mean Platelet Volume 7.0, Neutrophils (%) (Auto) , Lymphocytes (%) (Auto) , Monocytes (%) (Auto) , Eosinophils (%) (Auto) , Basophils (%) (Auto) , Neutrophils % (Manual) [Pending], Lymphocytes % (Manual) [Pending], Platelet Estimate [Pending], Platelet Morphology [Pending], Sodium Level 139, Potassium Level 3.9, Chloride Level 104, Carbon Dioxide Level 26, Anion Gap 9, Blood Urea Nitrogen 1L, Creatinine 0.5L, Estimat Glomerular Filtration Rate > 60, Glucose Level 120H, Calcium Level 9.0, Total Bilirubin 1.1H, Direct Bilirubin [Pending], Aspartate Amino Transf (AST/SGOT) 35, Alanine Aminotransferase (ALT/SGPT) 9L, Alkaline Phosphatase 63, Total Protein 6.6, Albumin 3.0L, Globulin 3.6, Albumin/Globulin Ratio 0.8L Current Medications Medications (Trade) Dose Ordered Sig/Josias Route PRN Reason Start Time Stop Time Status Last Admin Dose Admin Cefazolin Sodium 1 gm/Dextrose 55 ml @ 110 mls/hr Q8HR IVPB 09/26/20 22:00 10/03/20 21:59 09/28/20 05:29 Hydromorphone HCl (Dilaudid) 1 mg Q3H PRN IVP Mild Pain (Pain Scale 1-3) 09/26/20 18:45 10/03/20 18:44 Hydromorphone HCl (Dilaudid) 2 mg Q3H PRN IVP Moderate Pain (Pain Scale 4-6) 09/26/20 18:45 10/03/20 18:44 09/27/20 16:15 Hydromorphone HCl (Dilaudid) 2 mg Q3H PRN IVP Severe Pain (Pain Scale 7-10) 09/27/20 07:00 10/04/20 06:59 09/27/20 21:34 Iohexol (OMNIPAQUE-300 100ml) 100 ml NOW PRN INJ Radiology Procedure 09/26/20 15:30 09/28/20 15:29 Iron Sucrose 100 mg/Sodium Chloride 60 ml @ 240 mls/hr BEDTIME IVPB 09/26/20 21:00 10/26/20 20:59 09/26/20 21:04 Magnesium Hydroxide (Mom) 30 ml TIDPRN PRN ORAL Constipation 09/26/20 18:30 10/26/20 18:29 Methylnaltrexone [place] (Relistor) 12 mg Q48H SUBQ 09/26/20 21:00 12/25/20 20:59 09/26/20 21:25 Ondansetron HCl (Zofran) 4 mg Q6H PRN IVP Nausea & Vomiting 09/26/20 18:30 10/26/20 18:29 Oxycodone HCl (Roxicodone) 5 mg Q4H PRN ORAL SEVERE PAIN (7-10) 09/27/20 20:15 10/04/20 20:14 09/28/20 05:22 Potassium Chloride 30 meq/ Dextrose/Lactated Ringer's 1,015 ml @ 150 mls/hr Q6H46M IV 09/26/20 20:00 10/26/20 19:59 09/28/20 05:29 Assessment/Plan Problems: (1) Other acute postprocedural pain (2) Anemia (3) Status post embolization of uterine artery Assessment/Plan Pain control/supportive care Bowel regimen Monitor HH, transfuse as needed Theresa-operative Keflex, monitor WCt 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
--- NOTE | 2020-09-28 08:44 | NUR ---
NURSE NOTES: Notified Dr. Willis (covering for Dr. Duarte) regarding critical lab value of 22.1 for WBC; MD stated "it is not an emergency" and did not provide any new orders. Will continue to monitor.
[2020-09-28] MEDS ORDERED: Miralax 17gm pkt ORAL PRN (09:00)
[2020-09-28 09:02] LABS: BILIRUBIN,DIRECT 0.8 MG/DL (0.0-0.3)
[2020-09-28] MEDS ORDERED: Magnesium Citrate Liq Btl ORAL SCH ×2 (09:30→14:00)
--- NOTE | 2020-09-28 10:30 | NUR ---
NURSE NOTES: Spoke to pharmacist to confirm that Dr. Pizano is aware that pt received 2 units of PRBCs yesterday and that Venofer is scheduled tonight at 2100 but he still would like a one time order of Venofer for this AM.
--- NOTE | 2020-09-28 11:07 | NUR ---
Graphic Design TeacherBrass Molder Helper SI: Post embolization pain, Anemia, S/P Uterine Embolization T-97.8, HR 92, RR 20, BP 110/71, O2 sat 98% WBC 22.1 IS: Iron Sucrose IV Cefozolin IV q 8 h Med/Surg Status Addendum: 09/28/20 at 1111 by TANYA KENNY CM Transfused PRBC x 2 units
[2020-09-28 11:54] VITALS: BP 113/70
[2020-09-28] MEDS ORDERED: Iron Sucrose 100 MG in NS 55 ML IVPB SCH (12:00)
[2020-09-28 14:43] LABS: HEMATOCRIT 31.1 % (37.0-47.0); HEMOGLOBIN 8.7 G/DL (12.0-16.0); MEAN CORPUSCULAR VOLUME 62 FL (80-99); PLATELET COUNT 288 K/UL (150-450); RED BLOOD COUNT 5.03 M/UL (4.20-5.40); RED CELL DISTRIBUTION WIDTH 24.1 % (11.6-14.8)
[2020-09-28 14:44] LABS: WHITE BLOOD COUNT 24.7 K/UL (4.8-10.8)
[2020-09-28] MEDS ORDERED: PERCOCET 5-3251 EACH ORAL (14:53)
[2020-09-28] MEDS ORDERED: TRAMADOL HCL50 MG ORAL (14:53)
[2020-09-28] MEDS ORDERED: AUGMENTIN 875-1 EAC1 ORAL (14:53)
[2020-09-28] MEDS ORDERED: ZOFRAN ODT8 MG ORAL (14:53)
--- NOTE | 2020-09-28 14:56 | NUR ---
NURSE NOTES: Notified Dr. Pizano re: pt's WBC level of 24.7; no new orders given; pt to stay for at least another day. Will continue to monitor.
[2020-09-28 16:05] VITALS: BP 120/78
[2020-09-28] MEDS ORDERED: Bisacodyl EC 5mg tab ORAL PRN (17:45)
[2020-09-28] MEDS ORDERED: Fleet's Mineral Oil Enema RECTAL SCH (17:45)
[2020-09-28] MEDS: Docusate 250mg cap ORAL SCH (19:02)
[2020-09-28] MEDS: Sennosides 8.6mg tab ORAL SCH (19:02)
--- NOTE | 2020-09-28 19:37 | NUR ---
NURSE HAND-OFF: Important Events on Shift: Pt's WBC increased to 24.7; MD notified; Mag citrate x 2 given; pt finally had BM x 2. Patient Status: Stable Diet: Soft, vegan Pending Orders: labs in AM Pending Results/Labs: None Pending MD notification: None Latest Vital Signs: Temperature 98.6 , Pulse 106 , B/P 120 /78 , Respiratory Rate 19 , O2 SAT 99 , Room Air, O2 Flow Rate . Vital Sign Comment: Stable Latest Pacheco Fall Score: 35 Fall Risk: Medium Risk Safety Measures: Call light Within Reach, Bed Alarm Zone 1, Side Rails Side Rails x2, Bed position Low and Locked. Fall Precautions: Patient Fall Education Report given to LYDIA Patel.
--- NOTE | 2020-09-28 19:45 | NUR ---
NURSE NOTES: Received report from Flaco FREEMAN. Patient is awake, alert, and oriented x4. On room air, breathing is even and unlabored. No complains of pain or distress at the moment. Patient finally had bowel movement around 191. IV right AC intact and patent with no bleeding noted. Bed low and locked. Call light within reach.
[2020-09-28 20:00] VITALS: BP 108/69
[2020-09-28] MEDS: Relistor 12mg/0.6ml Vial SUBQ SCH ×2 (21:00→21:39)
[2020-09-28] MEDS: Iron Sucrose 100 MG in NS 55 ML IVPB SCH (21:39)
[2020-09-29] VITALS: BP 109/70
[2020-09-29 04:00] VITALS: BP 123/76
[2020-09-29 05:54] LABS: HEMATOCRIT 31.4 % (37.0-47.0); HEMOGLOBIN 9.2 G/DL (12.0-16.0); MEAN CORPUSCULAR VOLUME 62 FL (80-99); PLATELET COUNT 306 K/UL (150-450); RED CELL DISTRIBUTION WIDTH 24.4 % (11.6-14.8)
[2020-09-29 06:00] LABS: WHITE BLOOD COUNT 22.1 K/UL (4.8-10.8)
[2020-09-29] MEDS: ceFAZolin sod 1 GM in D5W 55 ML IVPB SCH (06:08)
--- NOTE | 2020-09-29 06:10 | NUR ---
NURSE NOTES: Received call from lab about critical lab value WBC 22.1. William called. Will call Dr.Mc Mack to inform.
[2020-09-29 06:15] LABS: ALANINE AMINOTRANSFERASE 9 U/L (12-78); ALBUMIN 3.2 G/DL (3.4-5.0); ALBUMIN/GLOBULIN RATIO 0.8 (1.0-2.7); ALKALINE PHOSPHATASE 70 U/L (46-116); ANION GAP 10 mmol/L (5-15); ASPARTATE AMINO TRANSFERASE 44 U/L (15-37); BILIRUBIN,TOTAL 1.3 MG/DL (0.2-1.0); BLOOD UREA NITROGEN 5 mg/dL (7-18); CALCIUM 8.9 MG/DL (8.5-10.1); CARBON DIOXIDE 26 MMOL/L (21-32); CHLORIDE 103 MMOL/L (98-107); CREATININE 0.7 MG/DL (0.55-1.30); POTASSIUM 3.5 MMOL/L (3.5-5.1); SODIUM 139 MMOL/L (136-145)
[2020-09-29 06:16] LABS: BILIRUBIN,DIRECT 0.3 MG/DL (0.0-0.3)
--- NOTE | 2020-09-29 06:26 | NUR ---
NURSE NOTES: Called to inform about critical lab value. No answer and left voice message.
--- NOTE | 2020-09-29 06:54 | NUR ---
NURSE NOTES: Dr. Willis already knows patient's WBC is elevated. No new orders since yesterday afternoon. Will not call again.
--- NOTE | 2020-09-29 07:42 | NUR ---
NURSE HAND-OFF: Important Events on Shift: Bowel movement x4, antibiotic treatment Patient Status: Stable Diet: Soft (vegan) Pending Orders: [] Pending Results/Labs:[] Pending MD notification:[] Latest Vital Signs: Temperature 99.1 , Pulse 105 , B/P 123 /76 , Respiratory Rate 17 , O2 SAT 97 , Room Air, O2 Flow Rate . Vital Sign Comment: VS stable Latest Pacheco Fall Score: 35 Fall Risk: Medium Risk Safety Measures: Call light Within Reach, Bed Alarm Zone 1, Side Rails Side Rails x2, Bed position Low and Locked. Fall Precautions: Patient Fall Education Report given to Carmen FREEMAN.
[2020-09-29 08:00] VITALS: BP 118/76
--- NOTE | 2020-09-29 08:00 | NUR ---
NURSE NOTES: RECIEVED PT. AWAKE AND ALERT NO S/S OF DISTRESS NOTED .CALL LIGHT WITHIN REACH @ ALL TIMES.INSTRUCTED TO CALL FOR ANY ASSISTANCE ,VERBALIZES UNDERSTANDING.WILL CONTINUE TO MONITOR.PLAN OF CARE DISCUSSED.
--- NOTE | 2020-09-29 08:39 | Pulmonology Progress Note ---
Subjective Allergies: Coded Allergies: ACETAMINOPHEN (Verified Allergy, Unknown, 09/26/20) OXYCODONE (Verified Allergy, Unknown, 09/26/20) Subjective afebrile no pain ( not using pain meds for the last 12 hrs) still with leukocytosis 22.1 , temp 99.3 this am had BM wants to go home Objective Last 24 Hour Vital Signs Date Time Temp Pulse Resp B/P (MAP) Pulse Ox O2 Delivery O2 Flow Rate FiO2 09/29/20 08:00 99.3 93 18 118/76 (90) 95 09/29/20 04:00 99.1 105 17 123/76 (92) 97 09/29/20 00:00 98.3 102 19 109/70 (83) 94 09/28/20 21:00 Room Air 09/28/20 20:00 98.8 101 19 108/69 (82) 95 09/28/20 16:05 98.6 106 19 120/78 (92) 99 09/28/20 11:54 99.1 101 18 113/70 (84) 99 09/28/20 09:00 Room Air Intake and Output 09/28/20 09/29/20 19:00 07:00 Intake Total 815 ml Balance 815 ml Intake Oral 700 ml IV Total 115 ml # Voids 4 # Bowel Movements 4 General Appearance: WD/WN, no acute distress HEENT: normocephalic, atraumatic, anicteric, mucous membranes moist Respiratory: chest wall non-tender, lungs clear, normal breath sounds, no respiratory distress, no accessory muscle use Cardiovascular: normal peripheral pulses, normal rate, regular rhythm Abdomen: hypoactive bowel sounds, tender - diffuse Lower abd Extremities: no cyanosis, no clubbing, no edema Microbiology Date/Time Source Procedure Growth Status 09/26/20 15:45 Urine,Clean Catch Urine Culture - Preliminary NO GROWTH AFTER 24 HOURS Resulted 09/26/20 15:45 Nasopharynx SARS-CoV-2 RdRp Gene Assay - Final Complete Laboratory Tests 09/28/20 14:33: White Blood Count 24.7*H, Red Blood Count 5.03, Hemoglobin 8.7L, Hematocrit 31.1L, Mean Corpuscular Volume 62L, Mean Corpuscular Hemoglobin 17.3L, Mean Corpuscular Hemoglobin Concent 27.9L, Red Cell Distribution Width 24.1H, Platelet Count 288, Mean Platelet Volume 6.2L, Neutrophils (%) (Auto) , Lymphocytes (%) (Auto) , Monocytes (%) (Auto) , Eosinophils (%) (Auto) , B asophils (%) (Auto) , Differential Total Cells Counted 100, Neutrophils % (Manual) 94H, Lymphocytes % (Manual) 3L, Monocytes % (Manual) 1, Eosinophils % (Manual) 0, Basophils % (Manual) 1, Band Neutrophils 1, Platelet Estimate Adequate, Platelet Morphology Normal, Polychromasia 2+, Hypochromasia 1+, Anisocytosis 3+, Microcytosis 3+, Spherocytes 2+ 09/29/20 05:20: White Blood Count 22.1*H, Red Blood Count 5.10, Hemoglobin 9.2L, Hematocrit 31.4L, Mean Corpuscular Volume 62L, Mean Corpuscular Hemoglobin 18.0L, Mean Corpuscular Hemoglobin Concent 29.1L, Red Cell Distribution Width 24.4H, Platelet Count 306, Mean Platelet Volume 8.6, Neutrophils (%) (Auto) , Lymphocytes (%) (Auto) , Monocytes (%) (Auto) , Eosinophils (%) (Auto) , Basophils (%) (Auto) , Neutrophils % (Manual) [Pending], Lymphocytes % (Manual) [Pending], Platelet Estimate [Pending], Platelet Morphology [Pending], Sodium Level 139, Potassium Level 3.5, Chloride Level 103, Carbon Dioxide Level 26, Anion Gap 10, Blood Urea Nitrogen 5L, Creatinine 0.7, Estimat Glomerular Filtration Rate > 60, Glucose Level 96, Calcium Level 8.9, Total Bilirubin 1.3H, Direct Bilirubin 0.3, Aspartate Amino Transf (AST/SGOT) 44H, Alanine Aminotransferase (ALT/SGPT) 9L, Alkaline Phosphatase 70, Total Protein 7.2, Albumin 3.2L, Globulin 4.0, Albumin/Globulin Ratio 0.8L Current Medications Medications (Trade) Dose Ordered Sig/Josias Route PRN Reason Start Time Stop Time Status Last Admin Dose Admin Bisacodyl (Dulcolax) 5 mg DAILYPRN PRN ORAL Constipation 09/28/20 17:45 12/27/20 17:44 Cefazolin Sodium 1 gm/Dextrose 55 ml @ 110 mls/hr Q8HR IVPB 09/26/20 22:00 10/03/20 21:59 09/29/20 06:08 Docusate Sodium (Colace) 250 mg DAILY ORAL 09/28/20 17:45 10/28/20 17:44 09/28/20 19:02 Hydromorphone HCl (Dilaudid) 1 mg Q3H PRN IVP Mild Pain (Pain Scale 1-3) 09/26/20 18:45 10/03/20 18:44 Hydromorphone HCl (Dilaudid) 2 mg Q3H PRN IVP Moderate Pain (Pain Scale 4-6) 09/26/20 18:45 10/03/20 18:44 09/27/20 16:15 Hydromorphone HCl (Dilaudid) 2 mg Q3H PRN IVP Severe Pain (Pain Scale 7-10) 09/27/20 07:00 10/04/20 06:59 09/27/20 21:34 Iron Sucrose 100 mg/Sodium Chloride 60 ml @ 240 mls/hr BEDTIME IVPB 09/26/20 21:00 10/26/20 20:59 09/28/20 21:39 Magnesium Hydroxide (Mom) 30 ml TIDPRN PRN ORAL Constipation 09/26/20 18:30 10/26/20 18:29 Methylnaltrexone [place] (Relistor) 12 mg Q48H SUBQ 09/26/20 21:00 12/25/20 20:59 09/26/20 21:25 Ondansetron HCl (Zofran) 4 mg Q6H PRN IVP Nausea & Vomiting 09/26/20 18:30 10/26/20 18:29 Oxycodone HCl (Roxicodone) 5 mg Q4H PRN ORAL SEVERE PAIN (7-10) 09/27/20 20:15 10/04/20 20:14 09/28/20 13:43 Polyethylene Glycol (Miralax) 17 gm DAILY PRN ORAL Constipation 09/28/20 09:00 10/28/20 08:59 Sennosides (Senokot) 8.6 mg BID ORAL 09/28/20 18:00 10/28/20 17:59 09/28/20 19:02 Assessment/Plan Assessment/Plan ASSESSMENT Other acute postprocedural pain Anemia, s/p blood transfusion Status post embolization of uterine artery Uterine fibroids Leukocytosis PLAN OF CARE MS floor IVF Pain control/supportive care- controlled, no use of pain meds for the last 12 hrs Bowel regimen- had BM Monitor HH, s/p 2 u PRBC , on Venofer, HH stable monitor WCt still 22, no fevers on empiric Ancef UCX 09/26 NGT 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
--- NOTE | 2020-09-29 09:15 | General Surgery Progress Note ---
General Surgery-Progress Note Subjective Procedure Performed uterine fibroid embolization Symptoms: improved, tolerating diet, voiding well, passing flatus, BM, pain decreased Objective Last 24 Hour Vital Signs Date Time Temp Pulse Resp B/P (MAP) Pulse Ox O2 Delivery O2 Flow Rate FiO2 09/29/20 08:00 99.3 93 18 118/76 (90) 95 09/29/20 04:00 99.1 105 17 123/76 (92) 97 09/29/20 00:00 98.3 102 19 109/70 (83) 94 09/28/20 21:00 Room Air 09/28/20 20:00 98.8 101 19 108/69 (82) 95 09/28/20 16:05 98.6 106 19 120/78 (92) 99 09/28/20 11:54 99.1 101 18 113/70 (84) 99 I&O Intake and Output 09/28/20 09/29/20 19:00 07:00 Intake Total 815 ml Balance 815 ml Intake Oral 700 ml IV Total 115 ml # Voids 4 # Bowel Movements 4 Abdomen: non-tender, present bowel sounds Laboratory Tests Test 09/28/20 14:33 09/29/20 05:20 White Blood Count 24.7 K/UL (4.8-10.8) *H 22.1 K/UL (4.8-10.8) *H Red Blood Count 5.03 M/UL (4.20-5.40) 5.10 M/UL (4.20-5.40) Hemoglobin 8.7 G/DL (12.0-16.0) L 9.2 G/DL (12.0-16.0) L Hematocrit 31.1 % (37.0-47.0) L 31.4 % (37.0-47.0) L Mean Corpuscular Volume 62 FL (80-99) L 62 FL (80-99) L Mean Corpuscular Hemoglobin 17.3 PG (27.0-31.0) L 18.0 PG (27.0-31.0) L Mean Corpuscular Hemoglobin Concent 27.9 G/DL (32.0-36.0) L 29.1 G/DL (32.0-36.0) L Red Cell Distribution Width 24.1 % (11.6-14.8) H 24.4 % (11.6-14.8) H Platelet Count 288 K/UL (150-450) 306 K/UL (150-450) Mean Platelet Volume 6.2 FL (6.5-10.1) L 8.6 FL (6.5-10.1) Neutrophils (%) (Auto) % (45.0-75.0) % (45.0-75.0) Lymphocytes (%) (Auto) % (20.0-45.0) % (20.0-45.0) Monocytes (%) (Auto) % (1.0-10.0) % (1.0-10.0) Eosinophils (%) (Auto) % (0.0-3.0) % (0.0-3.0) Basophils (%) (Auto) % (0.0-2.0) % (0.0-2.0) Differential Total Cells Counted 100 100 Neutrophils % (Manual) 94 % (45-75) H 88 % (45-75) H Lymphocytes % (Manual) 3 % (20-45) L 7 % (20-45) L Monocytes % (Manual) 1 % (1-10) 5 % (1-10) Eosinophils % (Manual) 0 % (0-3) 0 % (0-3) Basophils % (Manual) 1 % (0-2) 0 % (0-2) Band Neutrophils 1 % (0-8) 0 % (0-8) Platelet Estimate Adequate Adequate Platelet Morphology Normal Normal Polychromasia 2+ 1+ Hypochromasia 1+ 2+ Anisocytosis 3+ 3+ Microcytosis 3+ 2+ Spherocytes 2+ Sodium Level 139 MMOL/L (136-145) Potassium Level 3.5 MMOL/L (3.5-5.1) Chloride Level 103 MMOL/L (98-107) Carbon Dioxide Level 26 MMOL/L (21-32) Anion Gap 10 mmol/L (5-15) Blood Urea Nitrogen 5 mg/dL (7-18) L Creatinine 0.7 MG/DL (0.55-1.30) Estimat Glomerular Filtration Rate > 60 mL/min (>60) Glucose Level 96 MG/DL (74-106) Calcium Level 8.9 MG/DL (8.5-10.1) Total Bilirubin 1.3 MG/DL (0.2-1.0) H Direct Bilirubin 0.3 MG/DL (0.0-0.3) Aspartate Amino Transf (AST/SGOT) 44 U/L (15-37) H Alanine Aminotransferase (ALT/SGPT) 9 U/L (12-78) L Alkaline Phosphatase 70 U/L (46-116) Total Protein 7.2 G/DL (6.4-8.2) Albumin 3.2 G/DL (3.4-5.0) L Globulin 4.0 g/dL Albumin/Globulin Ratio 0.8 (1.0-2.7) L Plan Additional Comments +BM yesterday, pain controlled by oral meds. elevated, but decreasing WBC, likely post embolization syndrome. will follow as OP with blood draws thursday, thursday, RTO 1 week. oral roxicet, augmentin. Raleigh Pizano MD Sep 29, 2020 09:15
[2020-09-29] MEDS: Docusate 250mg cap ORAL SCH (09:16)
[2020-09-29] MEDS: Sennosides 8.6mg tab ORAL SCH (09:16)
--- NOTE | 2020-09-29 09:23 | Discharge Instructions ---
Discharge Instructions Discharge Instructions Follow up with: Dr Pizano next week Call MD/Return to Hospital if: fever, intractable pain, bleeding, Special Instructions contineu Augmentin as prescribed ( has at home) For Congestive Heart Failure Reminder Report to your physician any weight gain of 5 pounds or more in one week. Taya Sherwood NP Sep 29, 2020 09:23
[2020-09-29] MEDS ORDERED: Iron Sucrose 100 MG in NS 55 ML IVPB ONE (10:00)
[2020-09-29 12:00] VITALS: BP 117/75
[2020-09-29] MEDS ORDERED: Tubing IV Secondary IV ONE (12:34)
[2020-09-29] MEDS ORDERED: NS 275ml ONE (12:34)
--- NOTE | 2020-09-29 12:35 | NUR ---
NURSE NOTES: DISCHARGED PT.IN STABLE CONDITION.ACCOMPANIED BY [facility] STAFF IN A PRIVATE VEHICLE.BELONGINGS ACCOUNTED FOR .DISCHARGED INSTRUCTION PROVIDED ,FOLLOW UP W/ MD AND PRESCRIPTION GIVEN TO PT.
--- NOTE | 2020-10-02 15:25 | Discharge Summary ---
Discharge Summary Discharge Summary _ Date of admission: 09/26/2020 Date of discharge: 09/29/[address] Duarte History of Present Illness and Brief Hospital Course Ms. Granados is a 35-year-old female who was status post uterine embolization for treatment of uterine fibroids who presented to the ED for evaluation of abdomin al pain. Patient reported undergoing embolization the day prior to presentation by Dr. Pizano. Patient was nonresponsive to oral pain medications at home. Patient was also found to have significant anemia but declined transfusion due to nondenominational reasons. Patient reported being iron deficient and having chronic anemia at baseline. CT abdomen and pelvis showed very large uterine fibroids, some containing calcifications, hyperdense material, and gas as well as small amount of ascites. Given severe anemia, patient received 2 units of PRBC and her H&H improved. On day 3 of admission, patient was afebrile and did not complain of pain, and had bowel movement. Patient began tolerating oral diet as well. Patient requested to be discharged. WBC was still elevated but was trending down and it was likely post embolization syndrome. Patient was medically stable for discharge. Patient is to follow-up as an outpatient within 1 week. Consultants: General surgery Dr. Pizano Discharge Condition Improved and stable Discharge Diet Advance as tolerated Final diagnoses Status post urine artery embolization Anemia, status post blood transfusion Acute postprocedural pain Uterine fibroids Leukocytosis I have been assigned to dictate discharge summary for this account. I was not involved in the patient's management Michael Krueger Oct 02, 2020 15:25
== END 2020-09-29 12:35 | disposition home or self-care (01) | DRG 948 ==
LOC: EMR 15:40 → EDBEDREQ 17:28 → 3E 17:30
PROC: 30233N1 Transfusion of Nonautologous Red Blood Cells into Peripheral Vein, Percutaneous Approach (ICD-10-PCS; principal; 2020-09-26)
DX: G89.18 Other acute postprocedural pain (principal); D64.9 Anemia, unspecified; Z88.6 Allergy status to analgesic agent; Z98.890 Other specified postprocedural states
CPT/HCPCS: 36415; 74176; 80053; 81003; 81025; 82248; 83605; 83690; 85007; 85025; 85610; 85730; 86850; 86900; 86901; 86920; 87086; 93970; 96361; 96374; 96375; 96376; 99285; J2405; J7030; U0002